=== PATIENT | female | born 1935 | race Caucasian/White ===

== ENCOUNTER 2016-12-26 09:14 | Emergency (ER) | payer MEDICARE ==
--- NOTE | ~2016-12-26 | CT2 ---
[facility] A Service of [facility] RADIOLOGY TEXT RESULTS PATIENT: ELIZABETH ENRIQUEZ LOCATION: SED : 31 UNIT #: [id number] AGE: [address]: Alan Bowers MD SEX: F ORDER DR: [id number] [place] [id number] MR#: [id number] Acc #: [id number] NAME: ELIZABETH ENRIQUEZ. : 1935 SEX: F STUDY DATE/TIME: 12/26/2016 11:17 UNIT: SED ROOM: STUDY DESCRIPTION: CT Abd and Pelv W Cont Attending Physician: Alan Bowers M.D. Ordering Physician: Alan Bowers M.D. Primary Care Physician: Telly Polanco M.D. MEDICAL IMAGING REPORT This report is preliminary unless electronic signature is present. EXAM CT abdomen and pelvis with contrast INDICATIONS Left flank pain for the past month. Hematuria for the past month. TECHNIQUE Contrast-enhanced CT of the abdomen and pelvis. This CT exam was performed with one or more of the following radiation dose reduction techniques: automatic exposure control, adjustment of mA and/or kV according to patient size, and iterative reconstruction. COMPARISON 11/24/2015. FINDINGS ABDOMEN WITH CONTRAST: Included lung bases are clear. A few small cysts in the liver are stable, largest is a 1.1 cm cyst in segment 7 of the liver. The spleen, adrenal glands are unremarkable. Pancreatic atrophy. Previous cholecystectomy. Post-surgical change in the sigmoid colon. Bowel loops are non-dilated. Appendix is normal. Bilateral non-obstructing renal calculi, largest is in the left mid-kidney and measures 7 mm. No radiodense ureteral calculus or hydronephrosis. Small fat-containing umbilical hernia measures 2 cm. Atherosclerotic irregularity of the abdominal aorta. Infrarenal segment measures up to 3 cm and is not significantly changed. [facility] A Service of [facility] RADIOLOGY TEXT RESULTS PATIENT: ELIZABETH ENRIQUEZ LOCATION: SED : 33 UNIT #: [id number] AGE: [address]: Alan Bowers MD SEX: F ORDER DR: PELVIS WITH CONTRAST: No pelvic mass or fluid. No aggressive appearing bone lesion. IMPRESSION 1. No acute findings in the abdomen or pelvis. 2. Bilateral non-obstructing renal calculi but no radiodense ureteral calculus or hydronephrosis. 3. Mild aneurysmal dilation infrarenal abdominal aorta is stable. 4. 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 Dictated by... Stephan Reynolds M.D. THIS IS AN ELECTRONICALLY VERIFIED REPORT Stephan Reynolds M.D. at 12/28/2016 7:03 AM EED/sonny TD: 12/26/2016 18:35 JOB #: [id number] MEDICAL IMAGING REPORT Page 1 of 1
[~2016-12-26 09:14] MED LIST: ASPIRIN PO; ASPIRIN81 M2 PO; ASPIRINEC PO; B/P MED PO; BYSTOLIC20 MG PO; CALCIUM 500 + D1 TAB PO; CELEBREX PO; CERTAGEN PO; CIPRO; COREG12.5 M1; DARVOCET-N 1001 TAB PO; DOCUSATE SODIU100 MG PO; FLAGYL PO; FLOMAX0.4 M1; FOSAMAX PO; FOSAMAX70 MG PO; HYDROCODONE; INFLIXIMAB; LIPITOR20 MG PO; LORTAB 5/500 TA1 TA1 PO; LORTAB 7.5-5001 TAB PO; MEDROL4 MG/DOSE- PO; METHOTREXA2.5 MG/DOS PO; METHOTREXATE2.5 MG PO; MULTIVITAMIN W/1 TAB PO; NORVASC PO; PANTOPRAZOLE SO40 MG PO; POSTURE600 MG PO; PRILOSEC20 M1 PO; RECLAST 55 MG/100 M; REMICADE; TRAMADOL HCL50 M1; TRIMPEX; TRIMPEX100 MG DOB; ULTRAM PO; VALTREX PO; VERAPAMIL HCL240 MG PO; ZOFRAN
[2016-12-26 09:46] LABS: MICRO INDICATED? YES; URINE APPEARANCE CLEAR; URINE BILIRUBIN NEG (NEG); URINE BLOOD 1+ (NEG); URINE COLOR YELLOW; URINE GLUCOSE NEG (NORM); URINE KETONE NEG (NEG); URINE LEUKOCYTE ESTERASE NEG (NEG); URINE NITRATE NEG (NEG); URINE PROTEIN NEG (NEG); URINE SOURCE CLEAN CATCH; URINE UROBILINOGEN 0.2 MG/DL (NORM)
[2016-12-26 09:56] LABS: CULTURE INDICATED? NO; URINE BACTERIA NEG (NEG); URINE RBC 0-2 /[HPF] (0-2); URINE SQUAMOUS EPITHELIAL CELL OCCAS /[HPF]; URINE WBC 0-2 /[HPF] (0-5)
[2016-12-26 10:41] LABS: BASOPHIL# 0.1 X10e3 (0-0.3); EOSINOPHIL# 0.2 X10e3 (0-0.7); EOSINOPHIL% 2.8 % (0.0-7.0); HEMATOCRIT 40.3 % (35.0-45.0); HEMOGLOBIN 13.6 gm/dL (12.0-16.0); LYMPHOCYTE# 1.3 X10e3 (1.0-3.5); MEAN CELL VOLUME 99.7 FL (83-96); MEAN CORPUSCULAR HEMOGLOBIN 33.6 PG (28-34); MEAN CORPUSCULAR HGB CONC 33.6 g/dL (30-36); MEAN PLATELET VOLUME 8.1 FL (6.5-11.5); MONOCYTE# 0.6 X10e3 (0-1.0); MONOCYTE% 9.1 % (3.0-12.0); NEUTROPHIL# 4.1 X10e3 (1.5-7.1); NEUTROPHIL% 66.1 % (40-75); PLATELET COUNT 198 X10e3 (140-420); RED BLOOD COUNT 4.04 X10e (3.90-5.30); RED CELL DISTRIBUTION WIDTH 14.4 % (11.0-15.5); WHITE BLOOD COUNT 6.2 X10e3 (4.0-10.5)
[2016-12-26 10:42] LABS: DIFF IND NO
[2016-12-26 10:51] LABS: POC - CKMB <1.0 ng/mL (0.0-7.9); POC - MYOGLOBIN 77.2 ng/mL (0.0-169.0); POC - TROPONIN <0.05 ng/mL (<=0.05)
[2016-12-26 11:02] LABS: ALBUMIN SERUM 3.9 g/dL (3.5-5.0); BILIRUBIN,TOTAL 1.1 mg/dL (0.2-2.0); CALCIUM SERUM 8.4 mg/dL (8.4-10.2); GLOM FILT RATE Estimated 52.1 mL/min (>60); POTASSIUM 3.4 mmol/L (3.5-5.1); PROTEIN TOTAL SERUM 6.8 g/dL (6.0-8.3)
[2017-01-03] MEDS ORDERED: METHOTREXATE2.5 MG PO (14:53)
[2017-01-03] MEDS ORDERED: CELECOXIB200 MG PO (14:53)
[2017-01-03] MEDS ORDERED: VERAPAMIL ER240 M1 PO (14:54)
[2017-01-03] MEDS ORDERED: INFLECTRA100 MG (14:54)
[2017-01-03] MEDS ORDERED: COREG12.5 MG PO (14:54)
[2017-01-03] MEDS ORDERED: PANTOPRAZOLE SO20 MG PO (14:55)
[2017-01-09] MEDS ORDERED: NORVASC10 MG PO (17:03)
[2017-01-09] MEDS ORDERED: LIPITOR20 MG PO (17:04)
[2017-01-09] MEDS ORDERED: LISINOPRIL5 MG PO ×2 (17:06→17:07)
== END 2016-12-26 13:47 | disposition home or self-care (01) ==
LOC: SED 09:14
PROVIDERS: Emergency Medicine
DX: R10.9 Unspecified abdominal pain (principal); K21.9 Gastro-esophageal reflux disease without esophagitis; I10 Essential (primary) hypertension; Z87.442 Personal history of urinary calculi; G51.0 Bell's palsy; Z88.8 Allergy status to other drugs, medicaments and biological substances; Z79.82 Long term (current) use of aspirin; Z79.899 Other long term (current) drug therapy
CPT/HCPCS: 36415; 74177; 80053; 81003; 82553; 83690; 83874; 84484; 85025; 96361; 96374; 96375; 99284; J1885; Q9967